=== PATIENT | male | born 1945 | race Caucasian/White ===

== ENCOUNTER 2019-11-30 14:07 | Emergency (ER) | payer MEDICARE, MEDICAID ==
[~2019-11-30] VITALS: Ht 190.5 cm; Wt 113.4 kg
[2019-11-30 14:13] VITALS: BP 140/80
--- NOTE | 2019-11-30 15:30 | NUR ---
73 Y/O MALE BIB BLS C/O BODY ACHES X2 DAYS, AND LEFT PRESSURE ULCER ON BUTTOCKS. PT DENIES FEVER/CHILLS, N/V/D. PRESSURE ULCER ON BUTTOCKS IS OPENED, NOT BLEEDING, AND CAUSING THE PATIENT PAIN 8/10. PT IS ABLE TO STAND UP AT EDGE OF BED AND TAKE A FEW STEPS BUT FEELS TOO WEAK TO AMBULATE TO RESTROOM. RESP EVEN AND UNLABORED. EXP WHEEZES HEARD IN BILAT LOBES. BOWEL SOUNDS NORMO ACTIVE IN ALL QUADRANTS. AAOX4. PT IS POOR HISTORIAN. CAP REFILL <3. SKIN DRY/FLAKY/ MULTIPLE BRUISES AND ABRASIONS TO BILAT LOWER EXTR. GCS 15. ALLERGIIES: MACROLIDES
[2019-11-30 15:45] LABS: ALBUMIN 3.7 g/dL (3.4-5.0); ANION GAP 10.9 (8-16); ASPARTATE AMINOTRANSFERASE 21 U/L (15-37); CARBON DIOXIDE 30.6 mmol/L (21-32); CHLORIDE 101 mmol/L (98-107); CREATININE 1.6 mg/dL (0.6-1.3); GLUCOSE 116 mg/dL (74-106); POTASSIUM 4.5 mmol/L (3.5-5.1); SODIUM SERUM 138 mmol/L (136-145); TOTAL BILIRUBIN 1.4 mg/dL (0.0-1.0); UREA NITROGEN, BLOOD 26 mg/dL (7-18)
[2019-11-30] MEDS ORDERED: MAG SULF 2000 MG/WATER PREMIX 50 ML IV ONE (16:05)
[2019-11-30] MEDS ORDERED: DEXAMETHASONE 10 MG/ML VIAL IVP ONE (16:05)
[2019-11-30] MEDS ORDERED: MORPHINE SULFATE 2 MG/ML SYR IVP ONE (16:05)
[2019-11-30] MEDS ORDERED: FUROSEMIDE 100 MG/10 ML VIAL IVP ONE (16:05)
[2019-11-30] MEDS ORDERED: ALBUTEROL SULFATE/IPRATROPIU 3 ML SOL IH ONE (16:05)
--- NOTE | 2019-11-30 17:10 | NUR ---
PT TOLERATED COLVIN CATHETER INSERTION WELL. 500ML IN CATHETER BAG UPON INSERTION
[2019-11-30 17:19] LABS: PROTHROMBIN TIME 11.2 secs (10.8-13.4)
--- NOTE | 2019-11-30 17:23 | NUR ---
PT REPORTS DECREASED WORK OF BREATHING. RESP EVEN AND UNLABORED. NC 3L SP02 97%. ALL NEEDS MET AT THIS TIME
[2019-11-30 17:38] LABS: BASOPHILS % (AUTO) 0.4 % (0.0-2.0); EOSINOPHILS # (AUTO) 0.1 K/uL (0-0.4); EOSINOPHILS % (AUTO) 1.2 % (0.0-4.0); HEMATOCRIT 48.5 % (36-52); HEMOGLOBIN 15.7 g/dL (12.0-18.0); LYMPHOCYTES # (AUTO) 1.9 K/uL (2.0-11.5); LYMPHOCYTES % (AUTO) 18.8 % (20.5-51.1); MEAN CORPUSCULAR HEMOGLOBIN 30 pg (27-31); MEAN CORPUSCULAR HGB CONC 32 g/dL (33-37); MEAN CORPUSCULAR VOLUME 91.6 fL (80-94); MONOCYTES # (AUTO) 0.9 K/uL (0.8-1.0); MONOCYTES % (AUTO) 8.8 % (1.7-9.3); NEUTROPHILS # (AUTO) 7.1 K/uL (1.8-7.7); NEUTROPHILS % (AUTO) 70.8 % (42.2-75.2); PLATELET COUNT (AUTO) 248 K/uL (140-450); RED CELL DISTRIBUTION WIDTH 14.6 % (11.6-13.7)
--- NOTE | 2019-11-30 17:52 | NUR ---
PT REPORTS DECREASED PAIN, CURRENTLY 2/10. BED IN LOWEST POSITION, SIDE RAILS UP. ALL NEEDS MET AT THIS TIME
[2019-11-30 17:54] LABS: APPEARANCE,URINE CLEAR (CLEAR); BILIRUBIN,URINE 1+ (NEGATIVE); BLOOD, URINE 1+ (NEGATIVE); COLOR,URINE YELLOW (YELLOW); LEUKOCYTE ESTERASE ,URINE TRACE (NEGATIVE); NITRITE, URINE NEGATIVE (NEGATIVE); PH,URINE 5.5 (5.0-9.0); UGLUCOSE NEGATIVE (NEGATIVE)
[2019-11-30 18:03] LABS: WBC,URINE 0-5 /HPF (0-5)
--- NOTE | 2019-11-30 18:59 | NUR ---
[facility] TO PICK PATIENT UP AND TAKE HOME, ETA 15-45 MIN
[2019-11-30 19:05] VITALS: BP 126/69
--- NOTE | 2019-11-30 19:06 | NUR ---
Patient discharged with v/s stable. Written and verbal after care instructions given and explained. Patient alert, oriented and verbalized understanding of instructions. Ambulatory with steady gait. All questions addressed prior to discharge. ID band removed. Patient advised to follow up with PMD. Rx of LASIX, BACTROBAN given. Patient educated on indication of medication including possible reaction and side effects. Opportunity to ask questions provided and answered.
--- NOTE | 2019-11-30 21:19 | NUR ---
Phone number provided is not a working number. Attempted to call back for return care d/t Troponin of 0.077.
--- NOTE | 2019-12-04 07:05 | NUR ---
Late entry. COnfirmed with RN that Mag IV completed at 1830
== END 2019-11-30 21:19 | disposition home or self-care (01) ==
LOC: MED 14:07
DX: J44.1 Chronic obstructive pulmonary disease with (acute) exacerbation (principal); L89.90 Pressure ulcer of unspecified site, unspecified stage; I11.0 Hypertensive heart disease with heart failure; I50.9 Heart failure, unspecified; K21.9 Gastro-esophageal reflux disease without esophagitis; Z88.1 Allergy status to other antibiotic agents
CPT/HCPCS: 36415; 36600; 51702; 71045; 80053; 81001; 82550; 82803; 83605; 83880; 84484; 85025; 85610; 85730; 87040; 87086; 93005; 94640; 96365; 96366; 96375; 99285; J1100; J1940; J2270; J3475; J7620; Q0092; 96376